=== PATIENT | female | born 1995 | race Two or more races ===

== ENCOUNTER 2017-08-13 08:14 | Emergency (ER) | payer OTHER ==
[~2017-08-13] VITALS: Ht 154.9 cm; Wt 61.7 kg
[2017-08-13 08:24] VITALS: BP 119/82
== END 2017-08-13 09:11 | disposition home or self-care (01) ==
LOC: ER 08:14
DX: H92.03 Otalgia, bilateral (principal); R51 Headache; Z88.0 Allergy status to penicillin